=== PATIENT | male | born 1980 | race Caucasian/White ===

== ENCOUNTER 2018-03-26 07:44 | Emergency (ER) | payer BC ==
[~2018-03-26] VITALS: Ht 188 cm; Wt 109.1 kg
[~2018-03-26 07:44] MED LIST: BYSTOLIC10 MG PO; CLARITIN 1010 MG/TAB PO
[2018-03-26 07:51] VITALS: TEMP 98
[2018-03-26 08:12] LABS: BASO # 0.1 (0.0-0.2); BASO % 0.4 % (0.0-2.0); EOS # 0.1 (0.0-0.7); EOS % 0.5 % (0-4.0); GRAN # 9.2 (1.4-6.5); GRAN % 74.7 % (42.2-75.2); HEMATOCRIT 41.7 % (42.0-52.0); HEMOGLOBIN 14.5 g/dl (13.5-18.0); LYMPH # 2.5 (1.2-3.4); LYMPH % 20.1 % (20.0-51.0); MEAN CELL VOLUME 83 fl (80.0-100.0); MEAN CORPUSCULAR HEMOGLOBIN 29 pg (27.0-31.0); MEAN CORPUSCULAR HGB CONC 35 g/dl (33.0-37.0); MONO # 0.4 (0.1-0.6); MONO % 3.6 % (1.7-9.3); PLATELET COUNT 310 K/mm3 (130-400); RED BLOOD COUNT 5.01 M/mm3 (4.20-5.60); REDCELL DISTRIBUTION WIDTH-CV 13.2 % (11.5-14.5)
[2018-03-26 08:21] LABS: ALANINE AMINOTRANSFERASE 30 U/L (21-72); ALBUMIN 4.3 gm/dL (3.5-5.0); ALKALINE PHOSPHATASE 61 U/L (50-136); ANION GAP 14 mmol/L (7-16); AST,SGOT 22 U/L (15-37); BILIRUBIN,TOTAL 1.1 mg/dL (0.0-1.0); BLOOD UREA NITROGEN 16 mg/dL (9-20); CALCIUM 9.5 mg/dL (8.4-10.2); CARBON DIOXIDE 24 mmol/L (22-30); CHLORIDE 104 mmol/L (98-107); CREATININE, serum 0.91 mg/dL (0.66-1.25); GLUCOSE 100 mg/dL (74-106); LIPASE 77 U/L (23-300); POTASSIUM 3.4 mmol/L (3.4-5.0); SODIUM 142 mmol/L (137-145); TOTAL PROTEIN 7.7 gm/dL (6.4-8.2)
[2018-03-26 08:35] LABS: TROPONIN-I < 0.012 ng/mL (0.000-0.034)
[2018-03-26 09:59] VITALS: BP 140/80; PULSE 62
== END 2018-03-26 10:09 | disposition home or self-care (01) ==
LOC: COL.ER 07:44
PROVIDERS: Emergency Medicine
DX: I10 Essential (primary) hypertension (principal); R00.2 Palpitations
CPT/HCPCS: J7030

== ENCOUNTER → 2018-04-09 | Outpatient (CLI) | payer BC | LOC: COL.RAD 09:42 | DX: N28.89 Other specified disorders of kidney and ureter (principal); R79.89 Other specified abnormal findings of blood chemistry | CPT/HCPCS: Q9967 ==

== ENCOUNTER → 2018-11-12 | Outpatient (CLI) | payer BC ==
[~2018-11-12] MED LIST changes: +ALLEGRA 180MG180 MG PO; +FLOVENT DI50 MCG/Act IH; +PERCOCET 325 MG1 TA2 PO; +SENOKOT S 50 MG1 TAB PO; +SINGULAIR 110 MG/TAB PO
== END ==
LOC: COL.RAD 07:30
DX: N28.1 Cyst of kidney, acquired (principal); Z85.528 Personal history of other malignant neoplasm of kidney

== ENCOUNTER 2019-02-18 11:30 | Outpatient (RCR) | payer BC ==
[~2019-02-18] VITALS: Ht 188 cm; Wt 113.6 kg
[2019-02-21 12:20] VITALS: BP 141/76; PULSE 79; TEMP 98.2
== END 2019-05-19 | disposition still patient (30) ==
LOC: EUO → COL.ER 11:30 → EUO 11:32 → COL.ER 11:32 → EDSTATUS 11:56
DX: Z23 Encounter for immunization (principal); W55.81XA Bitten by other mammals, initial encounter

== ENCOUNTER 2021-06-06 19:39 | Emergency (ER) | payer BC ==
[~2021-06-06] VITALS: Ht 188 cm; Wt 115.9 kg
[2021-06-06 19:45] VITALS: TEMP 98.6
[2021-06-06 20:19] LABS: BASO % 0.4 % (0.0-2.0); EOS # 0.2 K/mm3 (0.0-0.7); EOS % 1.9 % (0-4.0); GRAN # 6.3 K/mm3 (1.4-6.5); HEMATOCRIT 42.3 % (42.0-52.0); LYMPH # 2.1 K/mm3 (1.2-3.4); LYMPH % 23.4 % (20.0-51.0); MEAN CELL VOLUME 84 fl (80.0-100.0); MEAN CORPUSCULAR HEMOGLOBIN 30 pg (27.0-31.0); MEAN CORPUSCULAR HGB CONC 36 g/dl (33.0-37.0); MONO # 0.4 K/mm3 (0.1-0.6); MONO % 4.8 % (1.7-9.3); PLATELET COUNT 339 K/mm3 (130-400); RED BLOOD COUNT 5.01 M/mm3 (4.20-5.60); REDCELL DISTRIBUTION WIDTH-CV 13.2 % (11.5-14.5)
[2021-06-06 20:34] LABS: ALANINE AMINOTRANSFERASE 47 U/L (0-55); ALBUMIN 4.4 gm/dL (3.5-5.0); ALKALINE PHOSPHATASE 62 U/L (0-750); ANION GAP 10 mmol/L (7-16); AST,SGOT 27 U/L (5-34); BILIRUBIN,TOTAL 1.1 mg/dL (0.2-1.2); BLOOD UREA NITROGEN 11 mg/dL (9-21); CALCIUM 9.1 mg/dL (8.4-10.2); CARBON DIOXIDE 22 mmol/L (22-29); CHLORIDE 106 mmol/L (98-107); CREATINE KINASE 129 U/L (30-200); CREATININE, serum 1.06 mg/dL (0.72-1.25); GLUCOSE 154 mg/dL (70-99); POTASSIUM 3.6 mmol/L (3.5-4.5); SODIUM 138 mmol/L (136-145)
[2021-06-06 20:41] LABS: TROPONIN-I < 0.010 ng/mL (0.00-0.033)
[2021-06-06 21:25] VITALS: BP 128/62; PULSE 89
== END 2021-06-06 21:30 | disposition home or self-care (01) ==
LOC: COL.ER 19:39
PROVIDERS: Emergency Medicine
DX: R00.2 Palpitations (principal); I10 Essential (primary) hypertension; Z79.899 Other long term (current) drug therapy
CPT/HCPCS: J7030